=== PATIENT | female | born 1990 | race Hispanic/Latino ===

== ENCOUNTER 2017-08-31 10:05 | Day surgery (SDC) | payer SELFPAY ==
[2017-08-31 10:52] VITALS: BP 98/56; TEMP 98.1; BMI 29.7
[2017-08-31] MEDS ORDERED: Acetaminophen 500 MG TAB PO PRN (11:55)
[2017-08-31 12:26] LABS: Bilirubin Negative (Negative); Blood, Urine Trace (Negative); Clarity CLEAR (Clear); Glucose, Urine (Dipstick) Negative (Negative); Leukocyte Trace (Negative); Nitrite Negative (Negative); Protein, Urine (Dipstick) Negative (Neg-Trace); Specific Gravity, Urine 1.014 (1.002-1.036); Urobilinogen 0.2 mg/dL (0.2-1.0); pH, Urine 7.5 (5.0-9.0)
[2017-08-31 12:30] LABS: Bacteria/HPF None Seen HPF (None Seen); Hyaline Casts/LPF 0-3 HYALINE CAST LPF (0-3 Hyaline); Pathc Cast-AUWi Flag 0.81 (0-2.49); Squamous Epithelial 0-3 HPF (0-3); WBC/HPF 0-3 HPF (0-3)
== END 2017-08-31 13:25 | disposition home or self-care (01) ==
LOC: L&D/OP 10:05
PROVIDERS: ATTEND Obstetrics & Gynecology
DX: O99.89 Other specified diseases and conditions complicating pregnancy, childbirth and the puerperium (principal); R07.81 Pleurodynia; R10.11 Right upper quadrant pain; R10.31 Right lower quadrant pain; Z90.49 Acquired absence of other specified parts of digestive tract; Z3A.27 27 weeks gestation of pregnancy
CPT/HCPCS: 81001; 99283